=== PATIENT | female | born 2000 | race Caucasian/White ===

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

== ENCOUNTER → 2020-11-29 | Outpatient (REF) | payer OTHER ==
[2020-11-29 15:43] LABS: HEMATOCRIT 34.4 % (36.0-47.0); HEMOGLOBIN 11.5 g/dl (12.0-15.5); MEAN CORPUSCULAR HEMOGLOBIN 30.3 pg (27.0-33.0); MEAN CORPUSCULAR HGB CONC 33.4 g/dl (32.0-36.5); MEAN CORPUSCULAR VOLUME 90.8 fl (80.0-96.0); PLATELET COUNT, AUTOMATED 234 10^3/uL (150-450); RED BLOOD COUNT 3.79 10^6/uL (4.00-5.40); WHITE BLOOD COUNT 8.2 10^3/uL (4.0-10.0)
[2020-11-29 15:54] LABS: INR 1.01; PROTHROMBIN TIME 13.5 SECONDS (12.5-14.3)
[2020-11-29 15:55] LABS: PARTIAL THROMBOPLASTIN TIME 35.6 SECONDS (24.2-38.5)
[2020-11-29 17:05] LABS: HEPATITIS C VIRUS ABY INDEX < 0.0 INDEX (<0.8); HIV 1&2 SCREEN CENTAUR NEGATIVE (NEGATIVE)
== END ==
LOC: M PLALAB 12:59
PROVIDERS: ATTEND Advanced Practice Midwife
DX: Z34.01 Encounter for supervision of normal first pregnancy, first trimester (principal)

== ENCOUNTER → 2020-12-11 | Outpatient (REF) | payer OTHER | LOC: M SFHCWAGY 16:53 | PROVIDERS: ATTEND Advanced Practice Midwife | DX: Z34.01 Encounter for supervision of normal first pregnancy, first trimester (principal) ==

== ENCOUNTER → 2020-12-13 | Outpatient (CLI) | payer OTHER ==
[~2020-12-13] MED LIST: ECOT81TA5 PO; IRON325T2 PO; LABE20TAB PO; MELA3TAB49 PO; PRENTAB9 PO
== END ==
LOC: M PLALAB 13:39
PROVIDERS: ATTEND Advanced Practice Midwife
DX: Z34.81 Encounter for supervision of other normal pregnancy, first trimester (principal)

== ENCOUNTER → 2021-02-26 | Outpatient (CLI) | payer OTHER ==
--- NOTE | 2021-02-26 09:27 | REP ---
INDICATION: ANATOMY. COMPARISON: None. TECHNIQUE: Transabdominal scanning FINDINGS: Multiple ultrasonographic images of the gravid uterus shows a single living intrauterine gestation in the transverse presentation. Doppler interrogation of the heart shows a heart rate of 160 beats per minute. The placenta is anterior and not low-lying. The cervix measures 4.7 cm in length and is closed. The subjective amniotic fluid volume is within normal limits. BPD: 5.4 cm 22 weeks 3 days HC: 20.6 cm 22 weeks 5 days AC: 17.9 cm 22 weeks 5 days FL: 3.7 cm 21 weeks 6 days The estimated weight is 499 g which is at the 28th percentile for a 22 week 5 day gestational age. anatomical structures seen to be unremarkable are as follows: Thalami, cavum septum pellucidum, cerebellum, cisterna magna, cerebral ventricles, spine, kidneys, urinary bladder, stomach, four-chamber heart, ventricular outflow tracts, upper lip, and upper lower extremities. Three-vessel umbilical cord and cord insertion were suboptimally visualized. IMPRESSION: Single living intrauterine gestation as described above with an estimated gestational age of 22 weeks 3 days via composite criteria and an estimated date of delivery of 06/29/2021 by today's exam. No anomalies were detected, however, I recommend a follow-up examination for optimal visualization of the cord insertion site and confirm a three-vessel umbilical cord. <Electronically signed by Salomon Vallejo > 02/26/21 [id number]
== END ==
LOC: M WHC 06:53
PROVIDERS: ATTEND Obstetrics & Gynecology
DX: Z34.01 Encounter for supervision of normal first pregnancy, first trimester (principal); Z3A.22 22 weeks gestation of pregnancy

== ENCOUNTER → 2021-03-24 | Outpatient (CLI) | payer OTHER ==
--- NOTE | 2021-03-24 08:21 | REP ---
INDICATION: ANATOMY COMPARISON: 02/26/2021 TECHNIQUE: Transabdominal obstetrical ultrasound with color Doppler evaluation. FINDINGS: Examination demonstrates a single live intrauterine in breech presentation. motion is identified by technologist. Placenta is noted anterior and grade 1 without evidence for placenta previa or abruption. Amniotic fluid volume is normal. Cervix measures 3.8 cm in length and appears closed.. Selected gestational age: 26 weeks 3 days with NIKITA 06/27/2021. Gestational age by current measurements 26 weeks 0 days with NIKITA 06/30/2021. FHR equals 136 beats per minute. Estimated weight 874 grams (22ndpercentile). Anatomical assessment demonstrates normal structures including three-vessel cord and cord insertion. IMPRESSION: Single live intrauterine demonstrating appropriate interval growth. In conjunction with prior examination anatomical assessment is complete and normal. <Electronically signed by Ruben Childs > 03/24/21 [id number]
== END ==
LOC: M WHC 07:10
PROVIDERS: ATTEND Specialist
DX: Z36.89 Encounter for other specified antenatal screening (principal); Z3A.26 26 weeks gestation of pregnancy

== ENCOUNTER → 2021-03-28 | Outpatient (CLI) | payer OTHER ==
[2021-03-28 17:31] LABS: HEMATOCRIT 30.1 % (36.0-47.0); MEAN CORPUSCULAR HEMOGLOBIN 31.1 pg (27.0-33.0); MEAN CORPUSCULAR HGB CONC 33.2 g/dl (32.0-36.5); MEAN CORPUSCULAR VOLUME 93.5 fl (80.0-96.0); PLATELET COUNT, AUTOMATED 202 10^3/uL (150-450); RED BLOOD COUNT 3.22 10^6/uL (4.00-5.40); WHITE BLOOD COUNT 10.1 10^3/uL (4.0-10.0)
[2021-03-28 19:14] LABS: GC DNA AMPLIFICATION NEGATIVE (NEGATIVE)
== END ==
LOC: M PLALAB 13:40
PROVIDERS: ATTEND Specialist
DX: Z34.02 Encounter for supervision of normal first pregnancy, second trimester (principal); Z3A.00 Weeks of gestation of pregnancy not specified
CPT/HCPCS: 36415; 82950; 85027; 86850; 86900; 86901; 87491; 87591; J2790

== ENCOUNTER → 2021-06-03 | Outpatient (REF) | payer OTHER | LOC: M SFHCWAGY 17:07 | PROVIDERS: ATTEND Obstetrics & Gynecology | DX: Z36.89 Encounter for other specified antenatal screening (principal); Z3A.00 Weeks of gestation of pregnancy not specified ==

== ENCOUNTER → 2021-06-03 | Outpatient (CLI) | payer MEDICAID, OTHER ==
[2021-06-03 17:28] LABS: HEMATOCRIT 32.2 % (36.0-47.0); HEMOGLOBIN 10.6 g/dl (12.0-15.5); MEAN CORPUSCULAR HEMOGLOBIN 30.2 pg (27.0-33.0); MEAN CORPUSCULAR HGB CONC 32.9 g/dl (32.0-36.5); MEAN CORPUSCULAR VOLUME 91.7 fl (80.0-96.0); PLATELET COUNT, AUTOMATED 236 10^3/uL (150-450); RED BLOOD COUNT 3.51 10^6/uL (4.00-5.40); WHITE BLOOD COUNT 13.2 10^3/uL (4.0-10.0)
[2021-06-03 17:50] LABS: TOTAL PROTEIN,RANDOM URINE 6.2 MG/DL (0.0-12.0)
[2021-06-03 18:03] LABS: ALBUMIN 2.9 GM/DL (3.2-5.2); ALT/SGPT 15 U/L (12-78); BILIRUBIN,TOTAL 0.2 MG/DL (0.2-1.0); BLOOD UREA NITROGEN 8 MG/DL (7-18); CALCIUM LEVEL 8.6 MG/DL (8.5-10.1); CARBON DIOXIDE LEVEL 22 MEQ/L (21-32); CHLORIDE LEVEL 109 MEQ/L (98-107); CREATININE FOR GFR 0.45 MG/DL (0.55-1.30); GLOMERULAR FILTRATION RATE > 60.0 (>60); GLUCOSE, FASTING 120 MG/DL (70-100); LDH LACTATE DEHYDROGENASE 131 U/L (84-246); POTASSIUM SERUM 3.6 MEQ/L (3.5-5.1); SODIUM LEVEL 138 MEQ/L (136-145); TOTAL PROTEIN 6.3 GM/DL (6.4-8.2); URIC ACID 2.8 MG/DL (2.6-6.0)
== END ==
LOC: M PLALAB 14:30
PROVIDERS: ATTEND Obstetrics & Gynecology
DX: Z36.9 Encounter for antenatal screening, unspecified (principal); O16.3 Unspecified maternal hypertension, third trimester; Z3A.00 Weeks of gestation of pregnancy not specified

== ENCOUNTER 2021-06-30 08:08 | Inpatient (IN) | payer OTHER ==
[2021-06-30] VITALS (59 sets, daily range): BP systolic 119–196; BP diastolic 54–120
[~2021-06-30] VITALS: Ht 160 cm; Wt 101.8 kg
[2021-06-30] MEDS ORDERED: LACTATED RINGER'S 1000 ML IV STA (08:28)
[2021-06-30] MEDS ORDERED: CARBOPROST TROMETHAMINE 250 MCG/ML AMP IM PRN (08:30)
[2021-06-30] MEDS ORDERED: LIDOCAINE 1% MDV 20ML VIAL INFIL PRN (08:30)
[2021-06-30] MEDS ORDERED: METHYLERGONOVINE MALEATE 0.2 MG/ML VIAL (J2210) IM PRN (08:30)
[2021-06-30] MEDS ORDERED: OXYTOCIN DRIP 30 UNITS in IV 1 EA IV PRN (08:30)
[2021-06-30] MEDS ORDERED: TRANEXAMIC ACID INJection 1,000 MG in NS 100 ML IV PRN (08:30)
[2021-06-30] MEDS ORDERED: miSOPROStol 50MCG 1/2 TABLET PO SCH (09:00)
[2021-06-30 09:21] LABS: HEMATOCRIT 33.2 % (36.0-47.0); HEMOGLOBIN 11.2 g/dl (12.0-15.5); MEAN CORPUSCULAR HEMOGLOBIN 30.3 pg (27.0-33.0); MEAN CORPUSCULAR HGB CONC 33.7 g/dl (32.0-36.5); MEAN CORPUSCULAR VOLUME 89.7 fl (80.0-96.0); PLATELET COUNT, AUTOMATED 228 10^3/uL (150-450); WHITE BLOOD COUNT 12.1 10^3/uL (4.0-10.0)
[2021-06-30] MEDS ORDERED: MELA3TAB49 PO (09:41)
[2021-06-30] MEDS ORDERED: PRENTAB9 PO (09:41)
[2021-06-30] MEDS ORDERED: ECOT81TA5 PO (09:41)
[2021-06-30] MEDS ORDERED: IRON325T2 PO (09:41)
[2021-06-30 09:46] LABS: CREATININE,RANDOM URINE 33.3 MG/DL; TOTAL PROTEIN,RANDOM URINE 8.2 MG/DL (0.0-12.0)
[2021-06-30 10:34] LABS: ALT/SGPT 16 U/L (12-78); BILIRUBIN,TOTAL 0.2 MG/DL (0.2-1.0); CREATININE FOR GFR 0.44 MG/DL (0.55-1.30); GLOMERULAR FILTRATION RATE > 60.0 (>60); LDH LACTATE DEHYDROGENASE 294 U/L (84-246); URIC ACID 3.8 MG/DL (2.6-6.0)
[2021-06-30] MEDS ORDERED: FENTANYL 2MCG/ML ROPIVACAINE 0.2% IN 0.9% NACL 100ML IVBAG As Ordered ONE (10:58)
[2021-06-30] MEDS ORDERED: EPIDURAL COMMENT XX SCH (11:30)
[2021-06-30] MEDS ORDERED: FENTANYL/ROPIVACAINE/NACL BAG 100 ML EPIDURAL SCH (11:30)
[2021-06-30] MEDS ORDERED: EPIDURAL/PCA KEYS XX PRN (11:30)
[2021-06-30] MEDS ORDERED: OXYTOCIN DRIP 30 UNITS in IV 1 EA IV SCH (12:45)
[2021-06-30] MEDS ORDERED: LR 1,000 ML IV SCH (12:45)
[2021-06-30] MEDS ORDERED: LABETALOL 100MG/20ML VIAL As Ordered ONE (16:48)
[2021-06-30] MEDS ORDERED: DIBUCAINE 1% OINTMENT 30GM TOP PRN (17:25)
[2021-06-30] MEDS ORDERED: ACETAMINOPHEN TAB 650MG DOSE (2X325MG) PO PRN (17:25)
[2021-06-30] MEDS ORDERED: IBUPROFEN 800 MG TAB PO PRN (17:25)
[2021-06-30] MEDS ORDERED: ACETAMINOPHEN 500 MG TAB PO PRN (17:25)
[2021-06-30] MEDS ORDERED: DOCUSATE SODIUM 100MG CAPSULE PO PRN (17:25)
[2021-06-30] MEDS ORDERED: ANUSOL HC CREAM 30GM TOP PRN (17:25)
[2021-06-30] MEDS ORDERED: MEASLES,MUMPS,RUBELLA VACCINE INJ (MMR-II) (90707) SC SCH (17:25)
[2021-06-30] MEDS ORDERED: RHOGAM 300 MCG (1500 IU) INJ (J2790) IM SCH (17:25)
[2021-06-30] MEDS ORDERED: MOM 30ML SUSPENSION UDC PO PRN (17:25)
[2021-06-30] MEDS ORDERED: LABETALOL 100MG/20ML VIAL IV STA (17:37)
[2021-06-30] MEDS: MAG Sulf (OBGYN) 20GM/500ML 20,000 MG in IV 1 EA IV SCH (19:15)
[2021-06-30] MEDS ORDERED: MAG Sulf (L&D) 4 GM/100 ML 4 GM in IV 1 EA IV ONE (19:15)
[2021-06-30] MEDS ORDERED: CALCIUM GLUCONATE 1,000 MG in D5W MINI-BAG PLUS 100 ML IV PRN (19:15)
[2021-06-30] MEDS: LABETALOL 200 MG TAB PO SCH (20:22)
[2021-06-30] MEDS: LR 1,000 ML IV SCH (20:22)
[2021-07-01] VITALS (18 sets, daily range): BP systolic 127–185; BP diastolic 60–104
[2021-07-01] MEDS: MAG Sulf (OBGYN) 20GM/500ML 20,000 MG in IV 1 EA IV SCH (05:18)
[2021-07-01 06:47] LABS: HEMATOCRIT 30.8 % (36.0-47.0); HEMOGLOBIN 10.4 g/dl (12.0-15.5); MEAN CORPUSCULAR HEMOGLOBIN 30.6 pg (27.0-33.0); MEAN CORPUSCULAR HGB CONC 33.8 g/dl (32.0-36.5); MEAN CORPUSCULAR VOLUME 90.6 fl (80.0-96.0); PLATELET COUNT, AUTOMATED 183 10^3/uL (150-450); WHITE BLOOD COUNT 15.3 10^3/uL (4.0-10.0)
[2021-07-01 07:13] LABS: ALT/SGPT 14 U/L (12-78); BILIRUBIN,TOTAL 0.2 MG/DL (0.2-1.0); CREATININE FOR GFR 0.38 MG/DL (0.55-1.30); GLOMERULAR FILTRATION RATE > 60.0 (>60); LDH LACTATE DEHYDROGENASE 189 U/L (84-246); URIC ACID 3.8 MG/DL (2.6-6.0)
[2021-07-01] MEDS: LABETALOL 200 MG TAB PO SCH ×2 (07:52→20:06)
[2021-07-01] MEDS ORDERED: NIFEdipine 10 MG CAP PO ONE (10:05)
[2021-07-01] MEDS: PRENATAL VITAMINS CHEWABLE TABLET PO SCH (10:13)
[2021-07-01] MEDS: LR 1,000 ML IV SCH (12:05)
[2021-07-01] MEDS: ASPIRIN 81MG ENTERIC TABLET PO SCH (12:06)
[2021-07-01] MEDS: IBUPROFEN 600MG TAB PO PRN ×2 (12:06→19:41)
[2021-07-02 02:00] VITALS: BP 154/70
[2021-07-02 05:34] VITALS: BP 147/66
[2021-07-02 09:49] VITALS: BP 142/76
[2021-07-02 10:05] VITALS: BP 142/76
[2021-07-02] MEDS: LABETALOL 200 MG TAB PO SCH (10:05)
[2021-07-02] MEDS: IBUPROFEN 600MG TAB PO PRN (10:05)
[2021-07-02] MEDS: PRENATAL VITAMINS CHEWABLE TABLET PO SCH (10:06)
[2021-07-02] MEDS: ASPIRIN 81MG ENTERIC TABLET PO SCH (10:06)
[2021-07-02] MEDS ORDERED: LABE20TAB PO (13:33)
[2021-07-02 14:08] VITALS: BP 139/64
== END 2021-07-02 14:25 | disposition home or self-care (01) | DRG 560 ==
LOC: M LDI 08:08 → M OBS 07-01 12:42
PROVIDERS: ADMIT Advanced Practice Midwife; ATTEND Advanced Practice Midwife
PROC: 10E0XZZ Delivery of Products of Conception, External Approach (ICD-10-PCS; principal; 2021-06-30)
PROC: 0HQ9XZZ Repair Perineum Skin, External Approach (ICD-10-PCS; 2021-06-30)
PROC: 3E0P7GC Introduction of Other Therapeutic Substance into Female Reproductive, Via Natural or Artificial Opening (ICD-10-PCS; 2021-06-30)
DX: O48.0 Post-term pregnancy (principal); D68.2 Hereditary deficiency of other clotting factors; O99.12 Other diseases of the blood and blood-forming organs and certain disorders involving the immune mechanism complicating childbirth; Z3A.40 40 weeks gestation of pregnancy; Z79.82 Long term (current) use of aspirin; O13.4 Gestational [pregnancy-induced] hypertension without significant proteinuria, complicating childbirth; O70.0 First degree perineal laceration during delivery; Z37.0 Single live birth

== ENCOUNTER → 2022-04-08 | Outpatient (CLI) | payer OTHER | LOC: M PLALAB 11:23 | PROVIDERS: ATTEND Advanced Practice Midwife | DX: Z13.79 Encounter for other screening for genetic and chromosomal anomalies (principal); Z80.0 Family history of malignant neoplasm of digestive organs; Z80.42 Family history of malignant neoplasm of prostate ==

== ENCOUNTER → 2022-04-08 | Outpatient (REF) | payer OTHER ==
[2022-04-08 22:06] LABS: GC DNA AMPLIFICATION NEGATIVE (NEGATIVE)
== END ==
LOC: M PLALAB 09:40
PROVIDERS: ATTEND Advanced Practice Midwife
DX: Z12.4 Encounter for screening for malignant neoplasm of cervix (principal); R87.610 Atypical squamous cells of undetermined significance on cytologic smear of cervix (ASC-US)

== ENCOUNTER → 2024-03-22 | Outpatient (CLI) | payer OTHER | LOC: M WHC 13:30 | PROVIDERS: ATTEND Advanced Practice Midwife | DX: N63.22 Unspecified lump in the left breast, upper inner quadrant (principal) ==

== ENCOUNTER → 2025-01-25 | Outpatient (REF) | payer OTHER ==
[2025-01-30 14:17] LABS: HPV APTIMA Not Detected (Not Detected)
== END ==
LOC: M PLALAB 15:32
PROVIDERS: ATTEND Advanced Practice Midwife
DX: Z12.4 Encounter for screening for malignant neoplasm of cervix (principal); R87.610 Atypical squamous cells of undetermined significance on cytologic smear of cervix (ASC-US)